=== PATIENT | male | born 1985 | race Caucasian/White ===

== ENCOUNTER 2016-11-25 02:02 | Emergency (ER) | payer BC ==
[~2016-11-25] VITALS: Ht 180.3 cm; Wt 74.0 kg
[2016-11-25 02:10] VITALS: Ht 180.3 cm; Wt 74.0 kg
[2016-11-25 02:22] VITALS: TEMP 98.1
[2016-11-25] MEDS ORDERED: NAPR-688 PO (02:34)
[2016-11-25] MEDS ORDERED: IBUP200C PO (02:34)
[2016-11-25] MEDS ORDERED: ADAL40PE SQ (02:34)
[2016-11-25] MEDS ORDERED: TRAM-40 PO (02:34)
[2016-11-25] MEDS ORDERED: CYCL5TAB PO (02:34)
[2016-11-25] MEDS ORDERED: ACET-141 PO (02:34)
[2016-11-25] MEDS ORDERED: SOD CHLORIDE 0.9% 1,000 ML IV STA (02:45)
[2016-11-25] MEDS ORDERED: morphine 4 MG/ML VIAL IV STA (02:45)
[2016-11-25] MEDS ORDERED: ONDANSETRON 4 MG INJ IV STA (02:45)
[2016-11-25 03:15] LABS: ADD SCAN DIFF NO; BASOPHIL # 0.1 10^3/ul (0.0-0.1); BASOPHILS % 0.6 % (0.0-2.0); EOSINOPHILS # 0.3 10^3/ul (0.0-0.5); EOSINOPHILS % 3.8 % (0.0-7.0); HEMATOCRIT 42.3 % (42.0-52.0); HEMOGLOBIN 15.5 g/dl (14.0-18.0); LYMPHOCYTES # 2.9 10^3/ul (0.8-2.9); LYMPHOCYTES % 36.1 % (15.0-51.0); MEAN CORPUSCULAR HEMOGLOBIN 31.5 pg (29.0-33.0); MEAN CORPUSCULAR HGB CONC 36.6 g/dl (32.0-37.0); MEAN PLATELET VOLUME 10.3 fl (7.4-10.4); MONOCYTE # 0.7 10^3/ul (0.3-0.9); MONOCYTES % 9.2 % (0.0-11.0); NEUTROPHILS % 50.2 % (39.0-77.0); PLATELET COUNT 212 10^3/UL (140-415); RED BLOOD COUNT 4.92 10^6/ul (4.70-6.10); RED CELL DISTRIBUTION WIDTH 11.5 % (11.5-14.5); WHITE BLOOD COUNT 7.9 10^3/ul (4.8-10.8)
[2016-11-25 03:18] LABS: ADD UMIC NO; UR ASCORBIC ACID NEGATIVE (NEGATIVE); UR BILIRUBIN (Dip) NEGATIVE (NEGATIVE); UR BLOOD (Dip) NEGATIVE (NEGATIVE); UR CLARITY CLEAR (CLEAR); UR COLOR YELLOW (YELLOW); UR GLUCOSE (Dip) NEGATIVE (NEGATIVE); UR KETONES (Dip) NEGATIVE (NEGATIVE); UR LEUKOCYTE ESTERASE (Dip) NEGATIVE Leu/ul (NEGATIVE); UR NITRITE (Dip) NEGATIVE (NEGATIVE); UR SPECIFIC GRAVITY (Dip) 1.017 (1.003-1.030); UR TOTAL PROTEIN (Dip) NEGATIVE (NEGATIVE); UR UROBILINOGEN (Dip) NEGATIVE (NEGATIVE)
--- NOTE | 2016-11-25 03:24 | RADRPT ---
PROCEDURE: Ultrasound of the abdomen. CLINICAL INDICATION: Right upper quadrant pain. TECHNIQUE: Sonographic images of the abdomen were performed. COMPARISON: No pertinent prior examinations were submitted for comparison. FINDINGS: Liver: The liver is normal in echogenicity but slightly enlarged, measuring approximately 18.3 cm. The hepatic veins and portal veins are patent with appropriate directional flow. No intrahepatic gaye miriam dilatation is seen. Gallbladder: The gallbladder is not distended and has normal wall thickness. No pericholecystic flu id or gallstones are visualized. The common duct measures 4.4 mm. Pancreas: There is limited evaluation of the pancreatic body and tail. The visualized portions of the pancreas are unremarkable. Kidneys: The right kidney measures 11.1 cm. There is normal corticomedullary differentiation. Ther e is no evidence of renal calculus or hydronephrosis. IVC: The visualized portion of the inferior vena cava is unremarkable. Aorta: Normal in size. Free fluid: None. IMPRESSION: Hepatomegaly. Otherwise unremarkable right upper quadrant ultrasound. RPTAT: HIKT .Vinh Yu MD, Date Time Electronically viewed and signed by .Vinh Yu MD, on 11/25/2016 03:23 .T/
[2016-11-25 03:46] LABS: ALBUMIN 4.4 g/dl (3.3-4.9); ALBUMIN/GLOBULIN RATIO 1.62; BILIRUBIN,INDIRECT 0.2 mg/dl (0-1.1); BILIRUBIN,TOTAL 0.2 mg/dl (0.2-1.3); CALCIUM 9.5 mg/dl (8.4-10.2); CREATININE 1.03 mg/dl (0.61-1.24); TOTAL PROTEIN 7.1 g/dl (6.1-8.1)
--- NOTE | 2016-11-25 04:12 | ERD ---
ER Documentation Chief Complaint Date/Time DATE: 11/25/16 TIME: 04:11 Chief Complaint abd sharp pain started last Thursday, vomiting HPI 30-year-old male with abdominal pain started last Thursday on. Pain is epigastric in location. Mild to moderate in intensity intensity. Burning in nature. Also mild vomiting. Nonbilious nonbloody. No fevers no chills. No other current complaints ROS All systems reviewed and are negative except as per history of present illness. Medications Home Meds Reported Medications Naproxen* (Naproxen*) 500 Mg Tablet, 500 MG PO BID Y for PAIN, TAB 11/25/16 Tramadol Hcl* (Ultram*) 50 Mg Tablet, 50 MG PO Q6H Y for PAIN, TAB 11/25/16 Cyclobenzaprine Hcl* (Cyclobenzaprine Hcl*) 5 Mg Tablet, 5 MG PO Q8H Y for MUSCLE SPASMS, #60 TAB 11/25/16 Adalimumab (Humira) 40 Mg/0.8 Ml Pen.ij.kit, 40 MG SQ 11/25/16 Ibuprofen* (Ibuprofen*) 200 Mg Capsule, 400 MG PO QID Y for PAIN, CAP 11/25/16 Acetaminophen* (Acetaminophen*) 500 MG Extra Strength Tablet, 500 MG PO Q4H Y for PAIN AND OR ELEVATED TEMP, TAB 11/25/16 Allergies Allergies: Coded Allergies: No Known Allergy (Unverified , 12/29/13) PMhx/Soc History of Surgery: No Anesthesia Reaction: No Hx Neurological Disorder: No Hx Respiratory Disorders: No Hx Cardiac Disorders: No Hx Psychiatric Problems: No Hx Miscellaneous Medical Probl: Yes (PSORIATIC ARTHRITIS) Hx Alcohol Use: Yes Hx Substance Use: No Hx Tobacco Use: No Smoking Status: Never smoker Physical Exam Vitals Vital Signs Date Time Temp Pulse Resp B/P Pulse Ox O2 Delivery O2 Flow Rate FiO2 11/25/16 02:22 98.1 65 18 139/88 98 Room Air 11/25/16 02:10 97.7 72 18 126/89 97 Physical Exam Const: [] Head: Atraumatic Eyes: Normal Conjunctiva ENT: Normal External Ears, Nose and Mouth. Neck: Full range of motion..~ No meningismus. Resp: Clear to auscultation bilaterally Cardio: Regular rate and rhythm, no murmurs Abd: Soft, non tender, non distended. Normal bowel sounds Skin: No petechiae or rashes Back: No midline or flank tenderness Ext: No cyanosis, or edema Neur: Awake and alert Psych: Normal Mood and Affect Result Diagram: 11/25/16 0300 11/25/16 0300 Results 24 hrs Laboratory Tests Test 11/25/16 03:00 11/25/16 03:04 White Blood Count 7.910^3/ul Red Blood Count 4.9210^6/ul Hemoglobin 15.5g/dl Hematocrit 42.3% Mean Corpuscular Volume 86.0fl Mean Corpuscular Hemoglobin 31.5pg Mean Corpuscular Hemoglobin Concent 36.6g/dl Red Cell Distribution Width 11.5% Platelet Count 34675^3/UL Mean Platelet Volume 10.3fl Neutrophils % 50.2% Lymphocytes % 36.1% Monocytes % 9.2% Eosinophils % 3.8% Basophils % 0.6% Nucleated Red Blood Cells % 0.0/100WBC Neutrophils # 4.010^3/ul Lymphocytes # 2.910^3/ul Monocytes # 0.710^3/ul Eosinophils # 0.310^3/ul Basophils # 0.110^3/ul Nucleated Red Blood Cells # 0.010^3/ul Sodium Level 138mmol/L Potassium Level 4.0mmol/L Chloride Level 104mmol/L Carbon Dioxide Level 26mmol/L Anion Gap 12 Blood Urea Nitrogen 16mg/dl Creatinine 1.03mg/dl Glucose Level 80mg/dl Calcium Level 9.5mg/dl Total Bilirubin 0.2mg/dl Direct Bilirubin 0.00mg/dl Indirect Bilirubin 0.2mg/dl Aspartate Amino Transf (AST/SGOT) 488IU/L Alanine Aminotransferase (ALT/SGPT) 337IU/L Alkaline Phosphatase 63IU/L Total Protein 7.1g/dl Albumin 4.4g/dl Globulin 2.70g/dl Albumin/Globulin Ratio 1.62 Lipase 123U/L Urine Color YELLOW Urine Clarity CLEAR Urine pH 6.0 Urine Specific [place] 1.017 Urine Ketones NEGATIVEmg/dL Urine Nitrite NEGATIVEmg/dL Urine Bilirubin NEGATIVEmg/dL Urine Urobilinogen NEGATIVEmg/dL Urine Leukocyte Esterase NEGATIVELeu/ul Urine Hemoglobin NEGATIVEmg/dL Urine Glucose NEGATIVEmg/dL Urine Total Protein NEGATIVEmg/dl Current Medications Medications (Trade) Dose Ordered Sig/Ino Route PRN Reason Start Time Stop Time Status Last Admin Dose Admin Sodium Chloride (NS) 1,000 ml @ 1,000 mls/hr Q1H STAT IV 11/25/16 02:45 11/25/16 03:44 DC 11/25/16 03:00 Morphine Sulfate (morphine) 4 mg ONCE STAT IV 11/25/16 02:45 11/25/16 02:54 DC 11/25/16 03:00 Ondansetron HCl (Zofran Inj) 4 mg ONCE STAT IV 11/25/16 02:45 11/25/16 02:54 DC 11/25/16 03:01 Procedures/MDM CBC: no e/o of systemic infection or severe anemia CMP: [no e/o severe acidosis, alkalosis, renal failure, diabetic ketoacidosis. Patient does show elevation of AST and ALT isolated Lipase: no e/o pancreatitis PT/INR: normal coagulation Urine: no e/o acute infection or hematuria Medical decision-makin-year-old male with severe elevation of LFTs. No vesicles this feels likely secondary to alcoholic liver disease. Patient was discharged home with tramadol and Zofran. Return 8 hours for serial abdominal exams. Otherwise follow-up with primary care physician Departure Diagnosis: Primary Impression: Abdominal pain Abdominal location: epigastric Qualified Code: R10.13 - Epigastric pain Condition: Stable BASIL [facility]OR Nov 25, 2016 04:12
[2016-11-25] MEDS ORDERED: RANI150T9 PO (04:14)
[2016-11-25] MEDS ORDERED: ONDA4TAB14 PO (04:14)
[2016-11-25] MEDS ORDERED: TRAM50TA2 PO (04:14)
[2016-11-25 04:36] VITALS: BP 114/68; PULSE 65; RESP 18
== END 2016-11-25 04:40 | disposition home or self-care (01) ==
LOC: E/R 02:02
DX: R10.13 Epigastric pain (principal); R11.10 Vomiting, unspecified
CPT/HCPCS: 76705; 80053; 81003; 83690; 85025; J2270; J2405; J7030; 36415; 96374; 96375